=== PATIENT | male | born 1995 | race Caucasian/White ===

== ENCOUNTER 2016-12-05 20:46 | Emergency (ER) | payer SELFPAY ==
[2016-12-05] MEDS ORDERED: Ondansetron INJ* 2 MG/ML VIAL IV ONE (21:05)
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
--- NOTE | 2016-12-05 21:26 | RAD ---
INDICATION: Head injury. COMPARISON: None. TECHNIQUE: Contiguous axial sections of the brain were obtained from the skull base to the vertex without contrast. FINDINGS: The ventricles, cisterns and sulci are within normal limits. The smart-white matter differentiation is adequately maintained and there is no sulcal effacement. No significant focal abnormality or mass effect is present. There is no evidence for intracranial hemorrhage. No significant focal osseous abnormality is present. There is mild mucosal thickening of the anterior and posterior ethmoid air cells. There is mild mucosal thickening of the right maxillary sinus. The mastoid air cells are well-aerated. IMPRESSION: No calvarial fracture or acute intracranial hemorrhage.
[2016-12-05] MEDS ORDERED: Morphine INJ* 4 MG/ML 1 ML CARPUJECT IV ONE ×2 (21:28→21:50)
[2016-12-05] MEDS ORDERED: Ketorolac INJ* 30 MG/ML 1 ML VIAL IV PUSH ONE (21:28)
[2016-12-05] MEDS ORDERED: Morphine INJ* 4 MG/ML 1 ML CARPUJECT ONE (21:42)
--- NOTE | 2016-12-05 21:42 | RAD ---
INDICATION: Dislocation COMPARISON: None. TECHNIQUE: 2 views of the right shoulder were obtained. FINDINGS: The right humeral head is dislocated anteriorly and inferiorly relative to the bony glenoid labrum. Visualized bones are otherwise intact. IMPRESSION: RIGHT SHOULDER DISLOCATION.
[2016-12-05] MEDS ORDERED: Morphine INJ* 10 MG/ML 1 ML CARPUJECT ONE (21:59)
[2016-12-05] MEDS ORDERED: Midazolam* 1 MG/ML 10 ML VIAL (10 MG) ONE (22:01)
[2016-12-05] MEDS ORDERED: Naloxone* 0.4 MG/ML 10 ML VIAL ONE (22:13)
[2016-12-05] MEDS ORDERED: Flumazenil* 0.1 MG/ML 5 ML MDV ONE (22:24)
[2016-12-05] MEDS ORDERED: Midazolam* 1 MG/ML 10 ML VIAL (10 MG) IV ONE (22:43)
[2016-12-05] MEDS ORDERED: Morphine INJ* 10 MG/ML 1 ML CARPUJECT IV ONE (22:43)
[2016-12-05] MEDS ORDERED: oxyCODONE/Acetamin 5/325 MG* TAB PO ONE (23:03)
--- NOTE | 2016-12-05 23:15 | RAD ---
INDICATION: Posterior shoulder reduction COMPARISON: Same day radiograph that show a dislocated shoulder. TECHNIQUE: A single AP view of the right shoulder was obtained at 2235 hours on December 05, 2016 status post shoulder reduction. FINDINGS: In the AP view the right shoulder is anatomically aligned. No visible fracture is identified. IMPRESSION: ANATOMIC ALIGNMENT OF THE RIGHT SHOULDER IN THE AP PROJECTION.
[2016-12-06 06:08] VITALS: BP 131/63
== END 2016-12-05 23:56 | disposition home or self-care (01) ==
LOC: ED 20:46
DX: S49.91XA Unspecified injury of right shoulder and upper arm, initial encounter (principal); S43.004A Unspecified dislocation of right shoulder joint, initial encounter; Y09 Assault by unspecified means; Y93.89 Activity, other specified; Y92.9 Unspecified place or not applicable; S09.90XA Unspecified injury of head, initial encounter; Y93.9 Activity, unspecified; Y92.89 Other specified places as the place of occurrence of the external cause
CPT/HCPCS: 70450; 96374; 96375; 99285; J1885; J2250; J2270; J2310; J2405